=== PATIENT | male | born 2000 | race Caucasian/White ===

== ENCOUNTER 2018-06-28 16:19 | Emergency (ER) | payer OTHER ==
[2018-06-28 16:24] VITALS: BP 158/91
--- NOTE | 2018-06-28 16:39 | EDPHY ---
H & P Stated Complaint: L neck/head pain Time Seen by Provider: 06/28/18 16:36 HPI/ROS: HPI: This is a 18-year-old male who presents with Chief Complaint: L neck/head pain Location: Left posterior neck and left temporal and occipital head Quality: Injury Duration: June 14 approximately 3 weeks ago Signs and Symptoms: no fever, no nausea, no vomiting, no photophobia, no noise sensitivity, no neck stiffness, no ear pain, no tinnitus, no nasal congestion, no sinus pressure, no weakness, no radiation, no aura, no LOC Timing: Gradual onset Severity: [id number] Context: Patient reports that he was at [facility] on June 14 when he was sparring and his partner kicked him in the left posterior neck and at the base of the scalp. He reports that he felt immediate, constant, moderate pain that was nonradiating in nature but it quickly resolved. Several days later he woke up in the middle night pain in the area that he was impacted. He notes that since this time he has noted some pins and needles feeling on the left occipital temporal side of his head that comes and goes and he notices it more when he is sleeping. Denies LOC, nausea, vomiting, dizziness, amnesia. He has no prior history of concussions. Patient does not take blood thinners. Modifying Factors: None Comment: ROS: A comprehensive 10 system review of systems is otherwise negative aside from elements mentioned in the history of present illness. MEDICAL/SURGICAL/SOCIAL HISTORY: Medical history: Generally healthy. Does not take any regular medications. Surgical history: Denies Social history: Never smoked. Denies drug and alcohol use. Family history noncontributory. CONSTITUTIONAL: Articulate, physically fit, well-appearing young adult white male, awake and alert, no obvious distress HEENT: Atraumatic and normocephalic. NECK: supple, no midline tenderness, flexion 45 degrees, extension 45 degrees, right and left lateral flexion 45 degrees. No meningismus. Cardiovascular: Normal S1/S2, regular rate, regular rhythm, without murmur rub or gallop. PULMONARY/CHEST: Symmetrical and nontender. no crepitus. Clear to auscultation bilaterally. Good air movement. No accessory muscle usage. ABDOMEN: Soft, nondistended, nontender, no ecchymosis. PELVIC: no pain with rocking; bilateral hips flexion 125 degrees, extension 30 degrees, with no pain internal rotation and no pain external rotation. BACK: No midline tenderness, no paraspinous spasm, deep tendon reflexes 2/2, no pain with straight leg raise, No foot drop. Achilles reflexes are equal bilaterally. Able to walk on heels and toes without difficulty. EXTREMITIES: 2/2 pulses, strength 5/5, DIP/PIP/MCP flexion/extension intact with good light touch sensation. no deformities, no clubbing, no cyanosis or edema. NEUROLOGICAL: no focal neuro deficits. GCS 15. Light touch sensation intact. Normal cerebellar testing. Cranial nerves 2-12 grossly intact. Normal finger- to-nose. Speech clear. SKIN: Warm and dry, no erythema. no rash. Good capillary refill. Source: Patient Exam Limitations: No limitations - Personal History Current Tetanus/Diphtheria Vaccine: Yes Current Tetanus Diphtheria and Acellular Pertussis (TDAP): Yes - Medical/Surgical History Hx Asthma: No Hx Chronic Respiratory Disease: No Hx Diabetes: No Hx Cardiac Disease: No Hx Renal Disease: No Hx Cirrhosis: No Hx Alcoholism: No Hx HIV/AIDS: No Hx Splenectomy or Spleen Trauma: No Other PMH: denies - Social History Smoking Status: Never smoked Constitutional: Initial Vital Signs Temperature (C) 37.1 C 06/28/18 16:22 Heart Rate 79 06/28/18 16:22 Respiratory Rate 16 06/28/18 16:22 Blood Pressure 158/91 H 06/28/18 16:22 O2 Sat (%) 97 06/28/18 16:22 O2 Delivery Mode Room Air Allergies/Adverse Reactions: No Known Allergies Allergy (Unverified 06/28/18 16:22) Home Medications: Medication Instructions Recorded Cyclobenzaprine [Flexeril 10 MG 10 mg PO TID PRN #10 tab 06/28/18 (*)] Medical Decision Making - Diagnostics Imaging Results: Imaging Impressions Cervical Spine CT 06/28/18 16:38 Impression: 1. No evidence of acute, displaced fracture. 2. With persistent symptomatology, recommend MRI for further evaluation as clinically warranted. ED Course/Re-evaluation: Vital signs reviewed and stable upon arrival. Based on the nexus protocol head CT imaging not indicated. Will obtain a cervical CT scan to evaluate for disc herniation to account for the radiculopathy. Patient had no impact and the anterior portion of his neck to warrant a CT angiogram of his neck to rule out carotid dissection. 1707: Radiology who advised cervical CT scan shows no acute spinal abnormality. It appears that patient has a cervical strain accompanied by postconcussion syndrome. Given referral to Dr. Smith in the concussion Clinic, verbal and written instructions for concussion precautions, neurosurgery referral if needed No signs of neurovascular compromise/tenting of skin/compartment syndrome/ extremities and joints examined above and below area of concern and are neurovascularly intact. This patient was seen under the supervision of my secondary supervising physician. I evaluated care for this patient independently. Discussed this patient with Dr. Pollard who did not see the patient. Differential Diagnosis: Head injury including but not limited to concussion, skull fracture, intraparenchymal contusion, subarachnoid, subdural and epidural hematoma. Departure - Departure Disposition: Home, Routine, Self-Care Clinical Impression: Postconcussion syndrome Posterolateral cervical muscle strain Qualifiers: Encounter type: initial encounter Qualified Code(s): S16.1XXA - Strain of muscle, fascia and tendon at neck level, initial encounter Condition: Good Instructions: Post Concussion Syndrome (ED), Cervical Strain (ED) Additional Instructions: You sustained a closed head injury and mild concussion with postconcussion syndrome and it is recommended that you observe concussion precautions. Please do not participate in any contact sports or moderate and strenuous activity until all symptoms have resolved or cleared by PCP/Concussion Clinic. Take Tylenol 650 mg every 4 hours and/or Ibuprofen 600 mg every 8 hours with food as needed for pain/headache. Consume a minimum of 8-10 glasses of water or electrolyte fluid replacement drinks that include Gatorade, Powerade, Pedialyte. Please follow-up with primary care provider and/or Dr. Smith in the Concussion Clinic. Take Tylenol 650 mg every 4 hours and/or Ibuprofen 600 mg every 8 hours with food as needed for pain. Use Flexeril every 8 hours as needed for muscle spasm. Return to the ER immediately if you have progressive headaches, neurologic deficits, gait abnormality, visual disturbance, slurred speech, or any other symptom that concerns you. Referrals: Bria Smith MD [Medical Doctor] - As per Instructions Prescriptions: Cyclobenzaprine [Flexeril 10 MG (*)] 10 mg PO TID PRN #10 tab PRN Reason: Spasms
== END 2018-06-28 17:10 | disposition home or self-care (01) ==
DX: F07.81 Postconcussional syndrome (principal); S16.1XXA Strain of muscle, fascia and tendon at neck level, initial encounter; W50.0XXA Accidental hit or strike by another person, initial encounter